=== PATIENT | female | born 1965 | race Caucasian/White ===

== ENCOUNTER → 2020-01-14 13:37 | Outpatient (CLI) | payer BC, SELFPAY | PROVIDERS: PCP Family Medicine; Visit Provider Family Medicine Hospice and Palliative Medicine | DX: Z11.59 Encounter for screening for other viral diseases (principal) | CPT/HCPCS: 87635; 94799; U0003 ==

== ENCOUNTER 2020-02-04 08:30 | Outpatient (RCR) | payer BC, SELFPAY ==
--- NOTE | 2019-12-31 09:49 | HP.PTEVAL_ITS ---
Patient's Visit Information MICHAEL DOMINIQUE is a 54 year old F referred to Physical Therapy by RISSA MELVIN with a diagnosis of L shoulder adhesive capsulitis. Date of Evaluation: 12/31/19 Physical Therapist: Wood Morillo DPT - Visit Plan Frequency: 1-2x /Week Duration: 6 Weeks Plan: Start with GH joint mobs inferior glides and PA. Add in PROM and AAROm in all directions with focus on long duration low load stretching. Progress HEP to increase consistency at home. - Subjective Pt. is here today for her initial evaluation with diagnosis of L shoulder adesive capsulitis. Pt. reports no mech of injury, but happened ~3 years ago. 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 Pt. denies pain, but does have some N/T in her L arm as times. Pt. reports increased soreness with use. Pt. reports overall her pain is better, but still stiff. Pt. does have some sorenes with end ranges of motion. Pt. reports going to therapy previously, but reports platauing previously. Pt. is hopeful now to increase her ROM and progress back to all recreational and work activities without limitations. - Pain L shoulder Pain Intensity (Out of 10): 0 Pain Intensity Range: 0, 4 Comment: Most stiff - Objective POSTURE: Pt. has normal shoulder height. Decreased L shoulder height with shoulder shrug. PALPATION: Pt. tender along bicipital groove, pain at lats and subscapularis. NEURO: Normal throughout. ROM: L shoulder- flexion 155deg, abd 120deg, functional ER C1 minimal scapular retraction noted, functional L5. PROM: flexion 165deg, abd 135deg, ER at 90deg 75deg, IR at 90deg 30deg. MMT: 5-/5 throughout L shoulder and scpaular musculature. - Goals Goal 1:: LTG: Pt. to be I with HEP. Goal Time Frame: 4-6 Weeks Goal 2:: STG: Pt. to sleep without increase in symptoms. Goal Time Frame: 2-4 Weeks Goal 3:: LTG: Pt. to have full L shoulder AROM without increase in symptoms. Goal Time Frame: 4-6 Weeks Goal 4:: STG:Pt. to have full PROM of L shoulder. Goal Time Frame: 2-4 Weeks - Rehabilitation Potential Physical Therapy Diagnosis: Pt. has signs and symptoms consistent with L shoulder adhesive capsulitis. Pt. has limited overhead and functional rotational motions. Pt. has good strength, but is mainly limited in end ranges motion. Pt. would benefit from PT to work on end range of motion. Rehabilitation Potential: Excellent - Anticipated Interventions Patient/Client Instruction: Educate patient on: Condition, Plan of Care, Risk Factors, Benefits of Fitness Program For the Purpose of:: To improve decision making, To facilitate caregiver knowledge, To improve self management, To prevent re-injury, To improve ability to perform tasks related to life management, To improve tolerance to ADL's Therapeutic Exercise to Include: Strength training, Power training, Postural training, Flexibilty training, Gait and locomotor training, Passive ROM, Active ROM, Dynamic Lumbar Stabilization, Aruna Exercises, Scapular Strength/Stabilization For the Purpose of:: To decrease pain, To decrease swelling/inflammation, To increase ROM, To improve nutrient delivery to tissue, To increase oxygenation perfusion, To improve muscle performance and motor function, To improve ability to perform ADL's, To improve health of tissue, To decrease soft tissue restriction, To increase flexibility/ROM Manual Therapy Techniques to Include: Mobilization, Passive ROM, Soft tissue mobilization For the Purpose of:: To decrease pain, To decrease swelling/inflammation, To increase ROM, To improve nutrient delivery to tissue Thank you for the opportunity to evaluate your patient. For Medicare and Medicare HMO plans, please review the plan of care and approve it. It will need to be FAXED BACK to us at [phone] for Medicare purposes. For Medicare only, by signing this I certify the plan of care. Please let me know if there are questions or concerns regarding this plan of care. Physician Signature: Date:
--- NOTE | 2020-02-04 11:39 | HP.PTREVAL ---
RISSA MELVIN, It has been my pleasure to treat MICHAEL DOMINIQUE over the last 4 visits for L shoulder adhesive capsulitis. Please see the progress note below for an update on the physical therapy plan of care! Subjective: Pt. reports overall I am doing much better. Pt. reports I am able to do my hair and reach in my cabinet better. Pt. reprots being 85% better overall. Objective/Function: Pt. did well with PT this date. Pt. has improved ROM of her L shoulder. ROM- flexion 170deg, abd 170deg, functional ER C6, functional IR T8. She has some stiffness with end ranges of motions and stiffness noted with her scapulea into protraction. Pt. has good strength 5-/5 throughout without increase in symptoms. Plan Plan: Pt. to trial exercises on her own for 2 weeks. Pt. is to follow up with PT if needed. If I do not hear from her during this period I will DC back to physician. Goals Goal 1:: LTG: Pt. to be I with HEP. Goal Time Frame: 4-6 Weeks Goal Progress: Goal Met Goal 2:: STG: Pt. to sleep without increase in symptoms. Goal Time Frame: 2-4 Weeks Goal Progress: Goal Met Goal 3:: LTG: Pt. to have full L shoulder AROM without increase in symptoms. Goal Time Frame: 4-6 Weeks Goal Progress: Progressing Goal 4:: STG:Pt. to have full PROM of L shoulder. Goal Time Frame: 2-4 Weeks Goal Progress: Goal Met Anticipated Interventions Patient/Client Instruction: Educate patient on: Condition, Plan of Care, Risk Factors, Benefits of Fitness Program For the Purpose of:: To improve decision making, To facilitate caregiver knowledge, To improve self management, To prevent re-injury, To improve ability to perform tasks related to life management, To improve tolerance to ADL's Therapeutic Exercise to Include: Strength training, Power training, Postural training, Flexibilty training, Gait and locomotor training, Passive ROM, Active ROM, Dynamic Lumbar Stabilization, Aruna Exercises, Scapular Strength/Stabilization For the Purpose of:: To decrease pain, To decrease swelling/inflammation, To increase ROM, To improve nutrient delivery to tissue, To increase oxygenation perfusion, To improve muscle performance and motor function, To improve ability to perform ADL's, To improve health of tissue, To decrease soft tissue restriction, To increase flexibility/ROM Manual Therapy Techniques to Include: Mobilization, Passive ROM, Soft tissue mobilization For the Purpose of:: To decrease pain, To decrease swelling/inflammation, To increase ROM, To improve nutrient delivery to tissue Please do not hesitate to contact me at [phone] by phone or if you have questions or concerns regarding this new plan of care! Sincerely, TAMIKO FaithT
== END 2020-02-04 19:00 | disposition home or self-care (01) ==
LOC: PT 08:30
PROVIDERS: PCP Family Medicine
DX: M75.02 Adhesive capsulitis of left shoulder (principal)
CPT/HCPCS: 97110; 97161; 97164